=== PATIENT | male | born 1980 | race African-American/Black ===

== ENCOUNTER 2020-09-21 06:58 | Emergency (ER) | payer OTHER ==
[2020-09-21 07:19] VITALS: BP 119/77; PULSE 60; TEMP 98.3; BMI 26.9
[2020-09-21] MEDS ORDERED: KETOROLAC TROMETHAMINE 60 MG/2 ML VIAL IM ONE (07:59)
[2020-09-21] MEDS ORDERED: LIDOCAINE 5% TOPICAL PATCH TP ONE (07:59)
[2020-09-21] MEDS ORDERED: METHOCARBAMOL 500 MG TABLET PO ONE (07:59)
[2020-09-21] MEDS ORDERED: KETOROLAC TROMETHAMINE 30 MG/1 ML VIAL ONE ×2 (08:41→08:56)
[2020-09-21] MEDS ORDERED: METHOCARBAMOL 500 MG TABLET ONE ×2 (08:41→08:56)
[2020-09-21] MEDS ORDERED: LIDOCAINE 5% TOPICAL PATCH ONE ×2 (08:41→08:56)
[2020-09-21] MEDS ORDERED: LIDOCAINE PATCH REMOVAL MC ONE (22:00)
== END 2020-09-21 09:30 | disposition home or self-care (01) ==
LOC: JER 06:58
PROC: 3E023GC Introduction of Other Therapeutic Substance into Muscle, Percutaneous Approach (ICD-10-PCS; principal; 2020-09-21)
DX: M54.5 Low back pain (principal)
CPT/HCPCS: 72100-TC-FY; 99284-25

== ENCOUNTER 2021-12-01 10:22 | Emergency (ER) | payer OTHER ==
[2021-12-01 10:40] VITALS: BP 122/74; PULSE 79; RESP 20; TEMP 98.7; BMI 25.6
== END 2021-12-01 11:58 | disposition home or self-care (01) ==
LOC: JERFT 10:22
PROC: 0H9BXZZ Drainage of Right Upper Arm Skin, External Approach (ICD-10-PCS; principal; 2021-12-01)
DX: L02.411 Cutaneous abscess of right axilla (principal); H10.33 Unspecified acute conjunctivitis, bilateral
CPT/HCPCS: 87070; 87186; 87205; 99283-25

== ENCOUNTER 2022-07-20 16:51 | Emergency (ER) | payer OTHER ==
[2022-07-20 16:58] VITALS: TEMP 97.9; BMI 26.9
[2022-07-20] MEDS ORDERED: MECLIZINE HCL 25 MG TABLET (FP) PO ONE (17:38)
[2022-07-20] MEDS ORDERED: SODIUM CHLORIDE 0.9% 500 ML INFUS.BAG IV ONE (17:38)
[2022-07-20] MEDS ORDERED: MECLIZINE HCL 25 MG TABLET (FP) ONE (18:13)
[2022-07-20 18:20] LABS: BASO % 0.7 % (0-2.0); EOS % 2.9 % (0-4.5); HEMATOCRIT 44.1 % (35.4-49); HEMOGLOBIN 14.9 GM/dL (11.7-16.9); LYMPH % 40.5 % (8-40); MCH 30.6 pg (25.7-33.7); MCHC 33.8 g/dl (32.0-35.9); MEAN CELL VOLUME 90.5 fl (80-96); MEAN PLT VOLUME 8.2 fl (7.5-11.1); MONO % 10.4 % (3.8-10.2); NEUT % 45.5 % (42.8-82.8); PLATELET COUNT 201 10^3/uL (134-434); RBC 4.88 M/mm3 (4.00-5.60); RDW 13.8 % (11.9-15.9); WHITE BLOOD COUNT 4.5 K/mm3 (4.0-10.0)
[2022-07-20] MEDS ORDERED: METOCLOPRAMIDE HCL INJECTION 10 MG/2 ML VIAL IVPUSH ONE (18:36)
[2022-07-20 18:46] LABS: POTASSIUM 4.2 mmol/L (3.5-5.1)
[2022-07-20 18:48] LABS: ALBUMIN 3.9 g/dl (3.4-5.0); BLOOD UREA NITROGEN 16.2 mg/dL (7-18); CALCIUM 9.5 mg/dL (8.5-10.1); MAGNESIUM 2.1 mg/dL (1.8-2.4)
[2022-07-20 18:51] LABS: CREATININE 1.3 mg/dL (0.55-1.3)
[2022-07-20 18:53] LABS: BILIRUBIN,TOTAL 0.6 mg/dL (0.2-1); TOT PROT 6.8 g/dl (6.4-8.2)
[2022-07-20] MEDS ORDERED: METOCLOPRAMIDE HCL INJECTION 10 MG/2 ML VIAL ONE (18:57)
[2022-07-20 20:56] VITALS: BP 121/64; PULSE 51; RESP 20
== END 2022-07-20 20:57 | disposition home or self-care (01) ==
LOC: JER 16:51
PROC: 3E033GC Introduction of Other Therapeutic Substance into Peripheral Vein, Percutaneous Approach (ICD-10-PCS; principal; 2022-07-20)
DX: R42 Dizziness and giddiness (principal); R53.1 Weakness
CPT/HCPCS: 36415; 70450-TC; 80053; 83735; 85025; 93005; 93010; 99285-25

== ENCOUNTER 2023-02-14 10:49 | Emergency (ER) | payer SELFPAY ==
[2023-02-14 11:22] VITALS: BP 127/76; PULSE 65; RESP 18; TEMP 98.5; BMI 27.5
== END 2023-02-14 12:59 | disposition home or self-care (01) ==
LOC: JER 10:49 → JERFT 10:49
DX: H92.02 Otalgia, left ear (principal); R42 Dizziness and giddiness; M25.522 Pain in left elbow; H66.92 Otitis media, unspecified, left ear; H61.22 Impacted cerumen, left ear
CPT/HCPCS: 73070-TC-LT-FY; 99283-25

== ENCOUNTER 2023-03-01 11:00 | Emergency (ER) | payer OTHER ==
[2023-03-01 14:26] VITALS: BP 128/66; PULSE 62; RESP 18; TEMP 98.4; BMI 28.0
== END 2023-03-01 14:32 | disposition home or self-care (01) ==
LOC: JER 11:00 → JERFT 11:00
DX: H93.12 Tinnitus, left ear (principal); R42 Dizziness and giddiness; H65.192 Other acute nonsuppurative otitis media, left ear
CPT/HCPCS: 99283-25

== ENCOUNTER 2024-12-02 12:29 | Emergency (ER) | payer OTHER ==
[2024-12-02 12:37] VITALS: BP 109/64; PULSE 58; RESP 20; TEMP 97.7; BMI 27.5
== END 2024-12-02 13:35 | disposition home or self-care (01) ==
LOC: JERFT 12:29
DX: M25.542 Pain in joints of left hand (principal)
CPT/HCPCS: 73130-TC-LT-FY; 99283-25